=== PATIENT | female | born 1995 | race Caucasian/White ===

== ENCOUNTER 2021-01-25 02:51 | Emergency (ER) | payer OTHER ==
[~2021-01-25] VITALS: Ht 170.2 cm; Wt 66.7 kg
[2021-01-25] MEDS ORDERED: ONDANSETRON HCL 4 MG/2 ML VIAL IV ONE (03:15)
[2021-01-25] MEDS ORDERED: KETOROLAC TROMETH 30 MG/ML 1ML VIAL IV ONE (07:30)
[2021-01-25] MEDS ORDERED: LORazepam 2MG/ML-1ML VIAL IV ONE (07:30)
[2021-01-25 11:55] VITALS: BP 98/55
== END 2021-01-25 13:58 | disposition admitted as inpatient to this hospital (09) ==
LOC: ER 02:51
DX: S03.02XA Dislocation of jaw, left side, initial encounter (principal); R11.10 Vomiting, unspecified; R51.9 Headache, unspecified; X58.XXXA Exposure to other specified factors, initial encounter; Y93.89 Activity, other specified; Y92.89 Other specified places as the place of occurrence of the external cause; Y99.8 Other external cause status
CPT/HCPCS: 21480; 36415; 70486; 84702; 96374; 96375; 99152; 99285; J1885; J2060; J2405